=== PATIENT | female | born 1960 | race Caucasian/White ===

== ENCOUNTER → 2017-02-16 | Outpatient (CLI) | payer OTHER ==
[~2017-02-16] MED LIST: CETI10TA18 PO; HYDR25TA6 PO; LISI-170 PO; METH500T7 PO; MULT-308 PO; NAPR220C PO; OMEG1CAP34 PO; TRUBIOTIC PO
[2017-02-16 14:01] LABS: BLOOD UREA NITROGEN 19 mg/dL (7-18)
[2017-02-16 14:03] LABS: ASPARTATE AMINO TRANSFERASE 20 U/L (15-37)
== END | disposition home or self-care (01) ==
LOC: STAR 12:29
PROVIDERS: ATTEND Neurological Surgery
DX: Z01.818 Encounter for other preprocedural examination (principal); M50.30 Other cervical disc degeneration, unspecified cervical region
CPT/HCPCS: 36415; 80053; 93005

== ENCOUNTER 2017-02-22 05:10 | Inpatient (IN) | payer OTHER ==
[~2017-02-22] VITALS: Ht 162.6 cm; Wt 86.9 kg
[2017-02-22] MEDS ORDERED: LACTATED RINGERS 1,000 ML IV SCH (05:55)
[2017-02-22 05:56] VITALS: BP 124/85
[2017-02-22] MEDS ORDERED: BACITRACIN 50,000 UNIT ONE (06:22)
[2017-02-22] MEDS ORDERED: THROMBIN 5,000 UNIT VIAL TP ONE (06:22)
[2017-02-22] MEDS ORDERED: BUPIVACAINE/PF-EPI 0.5% 1:200K ONE (06:22)
[2017-02-22] MEDS ORDERED: KETAMINE 10 MG/ML, 20ML ONE (07:03)
[2017-02-22] MEDS ORDERED: FENTANYL PF 250 MCG/5ML ONE (07:04)
[2017-02-22] MEDS ORDERED: LABETALOL 5MG/ML, 20ML IV PRN (08:30)
[2017-02-22] MEDS ORDERED: PROMETHAZINE 25 MG/ML, 1ML IV PRN (08:30)
[2017-02-22] MEDS ORDERED: MIDAZOLAM 1 MG/ML, 2ML IV PRN (08:30)
[2017-02-22] MEDS ORDERED: hydrALAzine 20 MG/ML, 1ML IV PRN (08:30)
[2017-02-22] MEDS ORDERED: HYDROmorphone 1 MG/ML, 1ML IV PRN (08:30)
[2017-02-22] MEDS ORDERED: FENTANYL PF 100 MCG/2ML IV PRN (08:30)
[2017-02-22] MEDS ORDERED: MEPERIDINE/PF 25MG/0.5ML IVPush PRN (08:30)
[2017-02-22] MEDS ORDERED: ONDANSETRON 2MG/ML, 2ML IVPush PRN ×2 (08:30→09:30)
[2017-02-22] MEDS ORDERED: OXYcodone 5 MG/5 ML ORAL.SOL UDC PO PRN (08:30)
[2017-02-22] MEDS ORDERED: METHOCARBAMOL 750 MG TABLET ONE (09:20)
[2017-02-22] MEDS ORDERED: OXYcodone 5 MG/5 ML ORAL.SOL UDC ONE (09:20)
[2017-02-22] MEDS: METHOCARBAMOL 750 MG TABLET PO PRN (09:27)
[2017-02-22] MEDS ORDERED: SENNA/DOCUSATE TABLET PO PRN (09:30)
[2017-02-22] MEDS ORDERED: BISACODYL 10 MG SUPP PR PRN (09:30)
[2017-02-22] MEDS ORDERED: CYCLOBENZAPRINE 10 MG TABLET PO PRN (09:30)
[2017-02-22] MEDS ORDERED: HYDROcodone/APAP 5/325 TABLET PO PRN (09:30)
[2017-02-22] MEDS ORDERED: PHARMACY MAY ADJ FOR RENAL FX MC PRN (09:30)
[2017-02-22] MEDS ORDERED: PROMETHAZINE 25 MG/ML, 1ML IM PRN (09:30)
[2017-02-22] MEDS ORDERED: DIPHENHYDRAMINE 50 MG/ML, 1ML IVPush PRN (09:30)
[2017-02-22] MEDS ORDERED: MORPHINE SULFATE 4 MG/ML, 1ML IVPush PRN (09:30)
[2017-02-22] MEDS ORDERED: OXYcodone/APAP 5/325MG TABLET PO PRN (09:30)
[2017-02-22] MEDS ORDERED: FENTANYL PF 100 MCG/2ML ONE (09:39)
[2017-02-22] MEDS ORDERED: CEFAZOLIN 1,000 MG ONE (11:02)
[2017-02-22] MEDS ORDERED: METOCLOPRAMIDE 5 MG/ML, 2ML ONE (11:02)
[2017-02-22] MEDS ORDERED: ONDANSETRON 2MG/ML, 2ML ONE (11:02)
[2017-02-22] MEDS ORDERED: DEXAMETHASONE 4 MG/ML, 1ML ONE (11:02)
[2017-02-22] MEDS ORDERED: PROPOFOL 10 MG/ML, 50ML ONE (11:02)
[2017-02-22] MEDS ORDERED: SUCCINYLCHOLINE 20 MG/ML, 10ML ONE (11:02)
[2017-02-22] MEDS ORDERED: PROPOFOL 10 MG/ML, 20ML ONE (11:02)
[2017-02-22] MEDS: D5%-0.9% NACL+KCL 20MEQ 1,000 ML IV SCH (12:28)
[2017-02-22 12:30] VITALS: BP 129/78
[2017-02-22] MEDS: CEFAZOLIN PMX 1GM/50ML 50 ML IVPB SCH ×2 (15:38→23:25)
[2017-02-22 18:44] VITALS: BP 118/73
[2017-02-22] MEDS: SODIUM CHLORIDE FLUSH 10ML SYR IVF SCH (21:00)
[2017-02-22] MEDS: HYDROcodone/APAP 10/325 MG TABLET PO PRN (23:24)
[2017-02-23 00:10] VITALS: BP 112/73
[2017-02-23] MEDS: HYDROcodone/APAP 10/325 MG TABLET PO PRN ×2 (02:58→07:33)
[2017-02-23] MEDS: METHOCARBAMOL 750 MG TABLET PO PRN ×2 (02:58→11:03)
[2017-02-23 03:40] VITALS: BP 101/66
[2017-02-23 06:40] VITALS: BP 106/68
[2017-02-23] MEDS: D5%-0.9% NACL+KCL 20MEQ 1,000 ML IV SCH (07:23)
[2017-02-23] MEDS: SODIUM CHLORIDE FLUSH 10ML SYR IVF SCH (07:33)
[2017-02-23] MEDS ORDERED: HYDROCHLOROTHIAZIDE 25 MG TABLET PO SCH (09:00)
[2017-02-23] MEDS ORDERED: LISINOPRIL 20 MG TABLET PO SCH (09:00)
[2017-02-23] MEDS ORDERED: CETIRIZINE 10 MG TABLET PO SCH (09:00)
[2017-02-23 10:35] VITALS: BP 124/74
[2017-02-23] MEDS ORDERED: HYDR-3307 PO (11:15)
[2017-02-23] MEDS ORDERED: CEPH-368 PO (11:17)
[2017-02-23] MEDS ORDERED: METH750T87 PO (11:17)
== END 2017-02-23 11:38 | disposition home or self-care (01) | DRG 473 ==
LOC: ORIP 05:10 → 4NOR 10:31 → DCLOUNGE 02-23 11:10
PROVIDERS: ADMIT Neurological Surgery; ATTEND Neurological Surgery
PROC: 0RG20A0 Fusion of 2 or more Cervical Vertebral Joints with Interbody Fusion Device, Anterior Approach, Anterior Column, Open Approach (ICD-10-PCS; 2017-02-22)
PROC: 4A11X4G Monitoring of Peripheral Nervous Electrical Activity, Intraoperative, External Approach (ICD-10-PCS; 2017-02-22)
PROC: 0RB30ZZ Excision of Cervical Vertebral Disc, Open Approach (ICD-10-PCS; principal; 2017-02-22 07:00)
DX: M48.02 Spinal stenosis, cervical region (principal); M25.78 Osteophyte, vertebrae; M50.10 Cervical disc disorder with radiculopathy, unspecified cervical region; I10 Essential (primary) hypertension; Z91.040 Latex allergy status; M46.1 Sacroiliitis, not elsewhere classified; G56.00 Carpal tunnel syndrome, unspecified upper limb; M51.17 Intervertebral disc disorders with radiculopathy, lumbosacral region; M51.16 Intervertebral disc disorders with radiculopathy, lumbar region
CPT/HCPCS: 36415; 72040; 86850; 86900; C1713; J0690; J1100; J2405; J2704; J3010; C1762; C1778; J0330; J2765; J3480; J7120